=== PATIENT | male | born 1980 | race Caucasian/White ===

== ENCOUNTER 2022-06-21 20:53 | Emergency (ER) | payer OTHER, MEDICAID, SELFPAY ==
[2022-06-21 20:54] VITALS: BP 144/80; PULSE 114; RESP 12; TEMP 36.5; O2SAT 99
[2022-06-21 20:58] VITALS: BP 155/84; PULSE 116; RESP 18; TEMP 37.1; O2SAT 97
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
[2022-06-21 21:24] LABS: Add Manual Diff / Slide Review NO; Basophils Absolute Auto 100 /uL (0-100); Basophils Percent Auto 0.6 % (0-2); Eosinophils Absolute Auto 100 /uL (0-450); Eosinophils Percent Auto 0.7 % (2-4); Hematocrit 46.1 % (41-53); Hemoglobin 15.7 g/dL (13.5-17.5); Lymphocytes Absolute Auto 2300 /uL (1100-4500); Lymphocytes Percent Auto 24.6 % (25-40); Mean Corpuscular HGB Conc 34.1 % (30-36); Mean Corpuscular Hemoglobin 30.6 PG (26-34); Mean Corpuscular Volume 89.7 fL (80-100); Monocytes Absolute Auto 500 /uL (0-900); Monocytes Percent Auto 5.3 % (3-14); Neutrophils Absolute Auto 6500 /uL (1500-7000); Neutrophils Percent Auto 68.8 % (50-75); Platelet Count 364 X10^3/uL (150-400); Red Blood Cell Count 5.14 X10^6/uL (4.5-5.9); Red Cell Distribution Width 13.1 % (11.6-14.8); White Blood Cell Count 9.4 X10^3/uL (4.5-11.0)
[2022-06-21] MEDS: OLANZapine ODT 10 MG TAB PO (21:30)
[2022-06-21] MEDS: IBUPROFEN 400 MG TABLET 800 MG PO (21:38)
[2022-06-21 21:39] LABS: Lithium < 0.2 mmol/L (0.6-1.2)
[2022-06-21 21:40] LABS: Acetaminophen < 10 ug/mL (10-30); Alanine Aminotransferase 59 IU/L (<50); Albumin 4.2 g/dL (3.5-5.0); Albumin Globulin Ratio 1.4 (1.0-2.8); Alkaline Phosphatase 103 U/L (38-126); Aspartate Aminotransferase 33 IU/L (17-59); BUN Creatinine Ratio 19.6 (6-22); Bilirubin Total 0.3 mg/dL (0.2-1.3); Blood Urea Nitrogen 11 mg/dL (9-20); COVID19 -Nasal RAPID Negative (Negative); Calcium 8.6 mg/dL (8.4-10.2); Carbon Dioxide 23 mmol/L (22-32); Chloride 100 mmol/L (98-107); Estimated Glomerular Filt Rate > 60 mL/min (>60); Ethanol (ETOH) 56 mg/dL; Globulin 3.1 g/dL (1.7-4.1); Glucose 138 mg/dL (70-100); HEMOLYSIS < 15 (0-50); Potassium 3.5 mmol/L (3.4-5.1); Salicylate < 1.0 mg/dL (<20); Sodium 139 mmol/L (137-145); Total Protein 7.3 g/dL (6.3-8.2)
[2022-06-21 21:56] LABS: Free T4, Direct Thyroxine 1.46 ng/dL (0.78-2.19)
[2022-06-21 22:06] LABS: UR Morphine/Opiate cutoff 300 Negative (Negative); Ur Creatinine Normal (Normal); Ur Specific Gravity Normal (Normal); Urine Amphetamines Negative (Negative); Urine Barbiturates Negative (Negative); Urine Benzodiazepines Negative (Negative); Urine Cocaine Negative (Negative); Urine MDMA Negative (Negative); Urine Methadone Negative (Negative); Urine Methamphetamines Positive (Negative); Urine Oxycodone Negative (Negative); Urine Phencyclidine Negative (Negative); Urine Tetrahydrocannabinol Negative (Negative); Urine Tricyclic Antidepressant Negative (Negative); Urine pH Normal (Normal)
[2022-06-21 22:11] LABS: Thyroid Stimulating Hormone 0.234 uIU/mL (0.47-4.68)
--- NOTE | 2022-06-22 01:35 | PC.NURSE ---
Pt sleeping. Resps even, unlabored. Pt appears in no distress
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
[2022-06-22 18:43] VITALS: BP 120/81; PULSE 92; TEMP 36.7; O2SAT 98
== END 2022-06-22 18:48 ==
PROVIDERS: Emergency Medicine; Emergency Provider Emergency Medicine
DX: R45.851 Suicidal ideations (principal); F32.A Depression, unspecified; Z20.822 Contact with and (suspected) exposure to COVID-19
CPT/HCPCS: 36415; 80053; 80178; 80305; 80320; 80329; 81003; 84439; 84443; 85025; 87635; 99284; C9803; G0480